=== PATIENT | female | born 1945 | race Asian ===

== ENCOUNTER 2019-05-01 05:39 | Outpatient (CLI) | payer MEDICARE ==
[~2019-05-01] VITALS: Ht 149 cm; Wt 48.0 kg
[2019-05-01] MEDS ORDERED: LISI10TA2 PO (11:08)
[2019-05-01] MEDS ORDERED: ATOR10TA66 PO (11:08)
== END 2019-05-01 11:18 | disposition home or self-care (01) ==
LOC: PREOP 05:39
PROVIDERS: ATTEND Surgery
DX: Z01.818 Encounter for other preprocedural examination (principal)

== ENCOUNTER 2019-05-08 09:03 | Day surgery (SDC) | payer MEDICARE ==
[~2019-05-08] VITALS: Ht 152.4 cm; Wt 48.0 kg
[2019-05-08] VITALS (7 sets, daily range): BP systolic 98–151; BP diastolic 55–83
[~2019-05-08 09:03] MED LIST: ATOR10TA66 PO; LISI10TA2 PO
[2019-05-08] MEDS ORDERED: LACTATED RINGERS 1,000 ML IV ONE (09:23)
[2019-05-08] MEDS ORDERED: LACTATED RINGERS 1,000 ML IV STA (09:44)
[2019-05-08] MEDS ORDERED: fentaNYL INJECTION 100 MCG/2 ML AMP IVP ONE (09:45)
[2019-05-08] MEDS ORDERED: MIDAZOLAM 5 MG/5 ML (VERSED) VIAL IV PRN (09:45)
[2019-05-08] MEDS ORDERED: HURRICAINE EXT TUBE (BENZOCAINE) XX PRN (09:45)
--- NOTE | 2019-05-08 09:53 | Progress Note-Pre Operative ---
Pre-Operative Progress Note H&P Reviewed The H&P was reviewed, patient examined and no changes noted. Time Seen by Provider: 09:49 Date H&P Reviewed: May 08, 2019 Time H&P Reviewed: 09:47 Pre-Operative Diagnosis: Gatritis, Screening colonoscopy STU WREN DO May 08, 2019 09:53 POS
[2019-05-08] MEDS ORDERED: MIDAZOLAM 2 MG/2 ML (VERSED) VIAL ONE (10:38)
[2019-05-08] MEDS ORDERED: PROPOFOL INJECTION 50 ML IV ONE (10:38)
[2019-05-08] MEDS ORDERED: HURRICAINE EXT TUBE (BENZOCAINE) ONE (10:58)
--- NOTE | 2019-05-08 11:18 | Progress Note-Post Operative ---
Post-Operative Progess Note Surgeon (s)/Sustainability Consultant (s) Surgeon STU WREN DO Sustainability Consultant: Phong Calzada MSIII Pre-Operative Diagnosis Gatritis, Screening colonoscopy Post-Operative Diagnosis Esophageal polyp Gastritis Gastric polyp hiatal hernia diverticula internal hemorrhoids Procedure & Operative Findings Date of Procedure 05/08/19 Procedure Performed/Findings EGD with bx Colon Anesthesia Type IV sedation by CLAY ROASTER Estimated Blood Loss Estimated blood loss (mL): scant Specimens/Packing Specimens Removed esophageal polyp antral bx body of stomach polyp GE jxn polyp STU WREN DO May 08, 2019 11:18 POS
--- NOTE | 2019-05-08 11:20 | Endoscopy Discharge Instruct ---
Endo Procedure/Findings Findings 1.: Other Findings (Esophageal polyp) 2.: Hiatal Hernia, Gastritis (and gastric polyps) 3.: Diverticulosis 4.: Internal Hemorrhoids Discharge Instructions - Activity: You might feel a little sleepy until tomorrow. This is due to the medicine you received to relax you. Until tomorrow, you should: NOT drive a car, operate machinery or power tools. NOT drink any alcoholic beverages. NOT make any important decisions or sign importortant papers. Do not return to work until tomorrow, unless otherwise instructed. Resume previous activities tomorrow. Diet: Start by taking liquids. If you tolerate liquids, advance to solid food. make an appointment for one week 1.: Colonscopy in 10 years Notify Physician - If you experience excessive bleeding, unusual abdominal pain, fever, or chest pain, contact your doctor immediately. STU WREN DO May 08, 2019 11:20 POS
--- NOTE | 2019-05-08 22:50 | OPERATIVE REPORT ---
DATE OF SERVICE: 05/08/2019 PREOPERATIVE DIAGNOSES: 1. Chronic gastritis. 2. Screening colonoscopy. POSTOPERATIVE DIAGNOSES: 1. Esophageal polyp. 2. Gastritis. 3. Gastric polyps. 4. Hiatal hernia. 5. Diverticula. 6. Internal hemorrhoids. PROCEDURES: 1. EGD with biopsy. 2. Colonoscopy. SURGEON: Arsalan Kinney DO DIRECTOR ELECTRONICS: Phong Calzada MSIII SPECIMEN: One esophageal polyp, one biopsy from the antrum, one biopsy of gastric polyp in the body of stomach and biopsy of the GE junction. BLOOD LOSS: Scant. FLUIDS: Per anesthesia. POSTOPERATIVE CONDITION: Stable. INDICATION FOR PROCEDURE: The patient is a 74-year-old female who has been having some chronic epigastric pain, heartburn sounds like chronic gastritis, needed a workup. Since she has never had a colonoscopy, needs one for screening. FINDINGS: The patient had esophageal polyp and noted some gastritis. She had a large amount of gastric polyps, but the esophageal polyp look different. She also had a small hiatal hernia. In the colon, she had some diverticula and some internal hemorrhoids. PROCEDURE NOTE: After informed consent was obtained, the patient was brought to the endoscopy suite and placed in the left lateral decubitus position. She was administered IV sedation by the FORESTRY HUNTER who then monitored her vitals the entire time, heart rate, blood pressure and pulse ox and the scope was inserted down the mouth into the esophagus. At the top of the esophagus, saw polyp looked different from fundic polyps. Picture taken and then able to remove it completely with a biopsy, continued down into the esophagus and the stomach, noted a large amount of gastric fundic polyps in the stomach, pushed in the duodenum. Duodenum looked okay, took a picture. Pulled back into the antrum, did a biopsy of antrum and then did a biopsy the body of stomach, took out one of the fundic polyps. Retroflexed the scope, saw a small hiatal hernia and then pulled the scope back up into the GE junction, did a biopsy here. Suctioned of the stomach out and then pulled the scope up the esophagus and out the mouth. Switched scopes, switched gloves, went down below, started the colonoscopy. Pushed all the way into about 140 cm, able to get to the cecum, took a picture of appendiceal orifice, noted the ileocecal valve and then slowly withdrew the scope insufflating to look circumferentially at the henriquez looking at the cecum, up the ascending colon to the hepatic flexure, then down the transverse colon to the splenic flexure, into the descending colon and in the sigmoid saw a few diverticula, took a picture of these and then continued down into the rectum, retroflexed the rectal vault, saw some small hemorrhoids, took a picture and then removed the scope. The patient tolerated the procedure. She was recovered in endoscopy suite. Job ID: [id number] DocumentID: [id number] Dictated Date: 05/08/2019 11:17:33 Tree Specialist Date: 05/08/2019 18:17:49 Dictated By: ARSALAN KINNEY DO [email or web address]
--- OUTSIDE RECORDS SUMMARY | 2019-05-31 00:47 | XMS REPORT | Continuity of Care Document ---
Author Organization Unknown POS Address Unknown SP Phone Unavailable SP Allergies Active Description Code Type Severity POS Reaction Onset Reported/Identified POS to Patient Clinical Status POS Yes No Known Drug Allergies [id number] Drug SP Unknown N/A 05/01/2019 SP SP Medications There is no data. Problems Date Dx Coded Attending Type Code POS Diagnosed By POS 05/01/2019 STU WREN DO Ot Z01.8 18 SP FOR OTHER PREPROCEDURAL EXAMIN SP 05/08/2019 TIARRA WREN DOIC B Ot D13.0 SP NEOPLASM OF ESOPHAGUS SP 05/08/2019 TIARRA WREN DOIC B Ot E78.5 SP UNSPECIFIED SP 05/08/2019 STU WREN DO B Ot F32.9 SP DEPRESSIVE DISORDER, SINGLE EPISOD SP 05/08/2019 TIARRA WREN DOIC B Ot I10 SP (PRIMARY) HYPERTENSION SP 05/08/2019 STU WREN DO B Ot K29.5 0 SP CHRONIC GASTRITIS WITHOUT BL SP 05/08/2019 TIARRA WREN DOIC B Ot K31.7 SP OF STOMACH AND DUODENUM SP 05/08/2019 TIARRA WREN DOIC B Ot K44.9 SP HERNIA WITHOUT OBSTRUCTION SP 05/08/2019 STU WREN DO B Ot 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 OR AB SP 05/08/2019 TIARRA WREN DOIC B Ot K64.8 SP HEMORRHOIDS SP 05/08/2019 TIARRA WREN DOIC B Ot Z12.1 1 SP FOR SCREENING FOR MALIGNANT NE SP 05/08/2019 STU WREN DO B Ot Z82.4 9 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 SP 05/11/2019 TIARRA WREN DOIC B Ot D13.0 SP NEOPLASM OF ESOPHAGUS SP 05/11/2019 TIARRA WREN DOIC B Ot E78.5 SP UNSPECIFIED SP 05/11/2019 TIARRA WREN DOIC B Ot F32.9 SP DEPRESSIVE DISORDER, SINGLE EPISOD SP 05/11/2019 HOLGER DO, STU B Ot I10 SP (PRIMARY) HYPERTENSION SP 05/11/2019 HOLGER DO, STU B Ot K29.5 0 SP CHRONIC GASTRITIS WITHOUT BL SP 05/11/2019 HOLGER DO, STU B Ot K31.7 SP OF STOMACH AND DUODENUM SP 05/11/2019 HOLGER DO, STU B Ot K44.9 SP HERNIA WITHOUT OBSTRUCTION SP 05/11/2019 HOLGER DO, STU B Ot 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 OR AB SP 05/11/2019 HOLGER DO, STU B Ot K64.8 SP HEMORRHOIDS SP 05/11/2019 HOLGER DO, STU B Ot Z12.1 1 SP FOR SCREENING FOR MALIGNANT NE SP 05/11/2019 HOLGER DO, STU B Ot Z82.4 9 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 SP 05/15/2019 HOLGER DONIS, STU B Ot D13.0 SP NEOPLASM OF ESOPHAGUS SP 05/15/2019 HOLGER DONIS, STU B Ot E78.5 SP UNSPECIFIED SP 05/15/2019 HOLGER DO, STU B Ot F32.9 SP DEPRESSIVE DISORDER, SINGLE EPISOD SP 05/15/2019 HOLGER DO, STU B Ot I10 SP (PRIMARY) HYPERTENSION SP 05/15/2019 HOLGER DO, STU B Ot K29.5 0 SP CHRONIC GASTRITIS WITHOUT BL SP 05/15/2019 HOLGER DO, STU B Ot K31.7 SP OF STOMACH AND DUODENUM SP 05/15/2019 HOLGER DONIS, STU B Ot K44.9 SP HERNIA WITHOUT OBSTRUCTION SP 05/15/2019 HOLGER DO, STU B Ot 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 OR AB SP 05/15/2019 HOLGER DO, STU B Ot K64.8 SP HEMORRHOIDS SP 05/15/2019 HOLGER DONIS, STU B Ot Z12.1 1 SP FOR SCREENING FOR MALIGNANT NE SP 05/15/2019 HOLGER DO, STU B Ot Z82.4 9 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 SP Procedures There is no data. Results There is no data. Encounters ACCT No. Visit Date/Time Discharge Status POS Pt. Type Provider Facility Loc./Un it POS Complaint POS [id number] 05/08/2019 09:03:00 12:45:00 SP DIS Outpatient STU WREN DO Via [facility] ENDO CHANGE IN BOWEL/EPIGASTRIC P AIN RUTH [id number] 05/01/2019 05:39:00 11:18:00 SP DIS Outpatient STU WREN DO [facility] PREOP COLONOSCOPY/EGD RUTH [id number] 05/01/2019 11:08:00 SP Registration SP
== END 2019-05-08 12:45 | disposition home or self-care (01) ==
LOC: ENDO 09:03
PROVIDERS: ATTEND Surgery
DX: Z12.11 Encounter for screening for malignant neoplasm of colon (principal); K29.50 Unspecified chronic gastritis without bleeding; D13.0 Benign neoplasm of esophagus; K31.7 Polyp of stomach and duodenum; K44.9 Diaphragmatic hernia without obstruction or gangrene; K57.30 Diverticulosis of large intestine without perforation or abscess without bleeding; K64.8 Other hemorrhoids; I10 Essential (primary) hypertension; E78.5 Hyperlipidemia, unspecified; F32.9 Major depressive disorder, single episode, unspecified; Z82.49 Family history of ischemic heart disease and other diseases of the circulatory system
CPT/HCPCS: 43239; G0121; 88305